=== PATIENT | male | born 1945 | race Caucasian/White ===

== ENCOUNTER → 2017-03-16 | Outpatient (CLI) | payer MEDICARE, OTHER ==
--- NOTE | 2017-03-17 10:30 | MRI ---
EXAM DESCRIPTION: MRI brain/orbits without and with contrast CLINICAL HISTORY: Blurred vision right eye. Ischemic neuritis. Previous cataract surgery 2016 COMPARISON: None Available. TECHNIQUE: Multi planar, multi sequence MRI evaluation of the brain and orbits, pre and post intravenous gadolinium FINDINGS: No signal abnormality or pathologic enhancement in the optic nerves, optic chiasm or optic tracts Orbits are grossly normal No intracranial hemorrhage, infarction, or mass lesion. Normal hernandez-white matter differentiation. No restricted diffusion. No pathologic enhancement throughout the brain Multifocal punctate and patchy white matter hyperintensity bilateral cerebral hemispheres mostly deep and periventricular white matter atrium and occipital horns bilateral lateral ventricles. This is nonspecific likely remote microvascular ischemia. Incidental pineal cyst 7 mm Ventricles are normal in size and configuration Normal flow voids are present in the major intracranial arteries and dural venous sinuses No abnormality is seen along the course of the cranial nerves. Normal appearance of the temporal bones Orbits are grossly normal Paranasal sinus disease with multifocal mucosal thickening throughout the ethmoid air cells. Mucosal retention cyst left maxillary sinus about 2.3 cm with inspissated secretions. No paranasal sinus fluid IMPRESSION: Normal MRI orbits. Specifically, no diagnostic evidence of optic neuritis Mild white matter disease likely remote microvascular ischemia. No acute abnormality Electronically signed by: Royal Curiel MD 03/17/2017 10:30 AM CDT
== END | disposition home or self-care (01) ==
LOC: MRI 09:55
PROVIDERS: ATTEND Ophthalmology
DX: H47.019 Ischemic optic neuropathy, unspecified eye (principal)

== ENCOUNTER → 2017-07-20 | Outpatient (CLI) | payer MEDICARE, OTHER | END | disposition home or self-care (01) | LOC: RESP 13:43 | PROVIDERS: ATTEND Family Medicine | DX: R06.02 Shortness of breath (principal) ==

== ENCOUNTER → 2017-09-07 | Outpatient (CLI) | payer MEDICARE, OTHER | LOC: SL 20:30 | PROVIDERS: ATTEND Internal Medicine | DX: G47.33 Obstructive sleep apnea (adult) (pediatric) (principal) ==

== ENCOUNTER → 2017-11-27 | Outpatient (CLI) | payer MEDICARE, OTHER | LOC: SL 18:59 | PROVIDERS: ATTEND Internal Medicine | DX: G47.33 Obstructive sleep apnea (adult) (pediatric) (principal) ==

== ENCOUNTER → 2018-03-26 | Outpatient (CLI) | payer MEDICARE, OTHER | LOC: GMAJS 17:43 | PROVIDERS: ATTEND Physician Assistant | DX: Z79.899 Other long term (current) drug therapy (principal); Z12.5 Encounter for screening for malignant neoplasm of prostate | CPT/HCPCS: 84439; 84443; G0103 ==

== ENCOUNTER → 2018-07-24 | Outpatient (CLI) | payer MEDICARE, OTHER | LOC: GMAE 14:49 | PROVIDERS: ATTEND Family Medicine | DX: E55.9 Vitamin D deficiency, unspecified (principal) ==

== ENCOUNTER → 2018-07-27 | Outpatient (CLI) | payer MEDICARE, OTHER ==
--- NOTE | 2018-07-27 10:57 | US ---
EXAM DESCRIPTION: Aorta CLINICAL HISTORY: 72 years Male, ENCOUNTER FOR SCREENING FOR OTHER DISORDER COMPARISON: None. FINDINGS: Proximal aorta measures 2.5 x 1.8 cm. The midabdominal aorta measures 2 x 2.4 cm. The distal abdominal aorta measures 2 x 2.5 cm. No significant enlargement to suggest the presence of an aneurysm. Common iliac arteries are normal in caliber 1.3 cm on the right and 1.1 cm on the left. No common iliac arterial aneurysm. Color Doppler imaging shows positive color flow within the aorta. IMPRESSION: Negative for evidence of abdominal aortic aneurysm. Electronically signed by: Ezra Grimaldo MD 07/27/2018 10:56 AM CDT
== END ==
LOC: US 09:00
PROVIDERS: ATTEND Family Medicine
DX: Z13.89 Encounter for screening for other disorder (principal)

== ENCOUNTER → 2018-08-27 | Outpatient (CLI) | payer MEDICARE, OTHER ==
--- NOTE | 2018-08-27 16:05 | MRI ---
EXAM DESCRIPTION: Upper Extremity,Right w/o Cont: MRI. CLINICAL HISTORY: BRACHIAL PLEXUS RT SIDE COMPARISON: MRI scan of the cervical spine on the same visit. TECHNIQUE: Multiplanar, high-field MRI, multiple sequences, without contrast: Right brachial plexus. FINDINGS: The brachial plexus can be seen in its entire course from the cervical spine, inferior to the clavicle and abutting the right subclavian artery and vein to the axilla. No solid soft tissue mass or fluid impressing on the plexus or originating from the plexus. Large cystic structure representing subcoracoid bursitis posterior and superior to the plexus and abutting the superior right subscapular muscle. Fatty muscle atrophy grade 2 noted in the muscles of the rotator cuff. On the coronal STIR images, however larger fluid collection is noted in the left subcoracoid bursa. Also bilateral glenohumeral joint effusions.. IMPRESSION: 1. No abnormal signal or mass or fluid in the brachial plexus. No mass effect on the plexus. 2. Bilateral subcoracoid bursitis. Larger in the left shoulder. Bilateral glenohumeral joint effusions. If rotator cuff pathology is suspected, consider MRI of the shoulder. Grade 2 atrophy in the right rotator cuff muscles. Electronically signed by: Alejandro Meyer MD 08/27/2018 4:03 PM [employer]
--- NOTE | 2018-08-27 16:20 | MRI ---
EXAM DESCRIPTION: Cervical Spine: MRI. CLINICAL HISTORY: CERVICAL RADICULOPATHY COMPARISON: MRI scan of the right brachioplexus without contrast. TECHNIQUE: Multiplanar MRI, multiple sequences, non-contrast High-field. FINDINGS: C3-4: Disc desiccation with anterior disc space loss. Bilateral uncinate spurs larger on the left. Minimal posterior midline disc bulge. Moderate canal narrowing and bilateral neural foraminal stenosis more on the left. C4-5: Disc desiccation with disc space preserved. Posterior midline 3 mm disc bulge abutting the cord. Bilateral flavum ligament hypertrophy. Bilateral facet arthrosis, with spur on the left. Moderate right neural foraminal narrowing and left neural foraminal stenosis. C5-6: Disc desiccation anterior bulging with spurs. Posterior broad-based protrusion of the disc impressing on the cord with borderline central mild canal stenosis. Bilateral uncinate spurs. Minimal facet arthrosis and bilateral neural foraminal stenosis. C6-7: Disc desiccation and minimal disc space loss. Disc bulge is more to the right of midline abutting the right ventral cord and the right C7 nerve. Large uncinate spur encroaching on the left foramen. Bilateral facets are unremarkable. Right paracentral borderline mild canal stenosis. Bilateral neural foraminal stenosis. C7-T1: Disc desiccation and left side Modic type II endplate reactive changes. Anterior and posterior disc bulge. Bilateral uncinate spurs larger on the right. Moderate left neural foraminal narrowing and right neural foraminal stenosis. Right facet arthrosis. Posterior disc bulge abutting the cord with moderate canal narrowing. T1-2: Disc desiccation minimal posterior bulge. Bilateral uncinate spurs. Bilateral mild foraminal narrowing more on the right. Facets and flavum ligaments are negative. Normal signal in the C2-3 disc with no bulging. Disc space preserved. Canal and neural foramina are patent. Facets negative. Spinal alignment kyphotic. No cord compression or cord edema. Atlantoaxial joint unremarkable.. Base of the cerebellar tonsils is above the foramen magnum. Paravertebral soft tissues negative. Vertebral bodies are not compressed at any level. Normal marrow signal in the remaining vertebral bodies and the posterior elements. IMPRESSION: 1. 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 2. Bilateral neural foraminal stenosis at C3-4, C5-6 and C6-7. Left neural foraminal stenosis at C4-5 and right neural foraminal stenosis at C7-T1. 3. Right paracentral borderline mild canal stenosis at C6-7. Borderline central mild canal stenosis at C5-6. Electronically signed by: Alejandro Meyer MD 08/27/2018 4:18 PM [facility]
== END ==
LOC: MRI 10:00
PROVIDERS: ATTEND Family Medicine
DX: M50.11 Cervical disc disorder with radiculopathy, high cervical region (principal); M50.121 Cervical disc disorder at C4-C5 level with radiculopathy; M50.122 Cervical disc disorder at C5-C6 level with radiculopathy; M50.123 Cervical disc disorder at C6-C7 level with radiculopathy; M50.13 Cervical disc disorder with radiculopathy, cervicothoracic region; M75.51 Bursitis of right shoulder; M75.52 Bursitis of left shoulder; M25.411 Effusion, right shoulder; M25.412 Effusion, left shoulder

== ENCOUNTER → 2019-12-31 | Outpatient (CLI) | payer MEDICARE, OTHER | DX: Z01.812 Encounter for preprocedural laboratory examination (principal); Z79.01 Long term (current) use of anticoagulants ==

== ENCOUNTER → 2020-05-11 | Outpatient (CLI) | payer MEDICARE, OTHER | LOC: GMAE 14:28 | PROVIDERS: ATTEND Family Medicine | DX: Z12.5 Encounter for screening for malignant neoplasm of prostate (principal); I10 Essential (primary) hypertension; E78.2 Mixed hyperlipidemia; Z79.891 Long term (current) use of opiate analgesic | CPT/HCPCS: 84443; G0103 ==

== ENCOUNTER → 2020-10-21 | Outpatient (CLI) | payer MEDICARE, OTHER ==
--- NOTE | 2020-10-22 08:40 | US ---
EXAM DESCRIPTION: Soft Tissue,Extremity: ULTRASOUND. 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 TECHNIQUE: Transcutaneous scanning: Logan-scale and Doppler modes. FINDINGS: Inhomogeneous hypoechoic mass with circumscribed margins in the subcutaneous tissues abutting the right posterior hip. Dimensions are 4.0 x 2.1 x 2.5 cm. Wider than tall orientation with posterior acoustic enhancement. Nonvascular. No fluid collection. No distinct cysts or large calcifications. Similar-appearing mass much smaller in the adjacent soft tissues measuring 1.3 x 1.2 x 0.7 cm. Wider than tall orientation, circumscribed margins and posterior acoustic enhancement. No distinct cyst, no fluid collection, and no large calcifications. IMPRESSION: 2 dominant soft tissue masses in the subcutaneous adipose tissue abutting the right posterior hip. 4 cm and 1.3 cm maximum diameter. Circumscribed, wider than tall orientation, posterior acoustic enhancement, and nonvascular. Due to degree of hypoechogenicity and heterogeneity of the echoes, these may represent more complicated lipomas. Consider close clinical follow-up, MRI scan with gadolinium, and/or tissue sampling. Electronically signed by: Alejandro Meyer MD 10/22/2020 8:38 AM [facility]
== END ==
LOC: US 13:30
PROVIDERS: ATTEND Family Medicine
DX: D17.1 Benign lipomatous neoplasm of skin and subcutaneous tissue of trunk (principal)

== ENCOUNTER → 2020-10-30 | Outpatient (CLI) | payer MEDICARE, OTHER ==
--- NOTE | 2020-10-30 15:35 | US ---
Thyroid Biopsy, Image-Guided: Biopsy/Needle Guidance: Ultrasound CLINICAL INFORMATION: 75 years Male. Right posterior hip subcutaneous soft tissue mass minimal growth. COMPARISON: Ultrasound soft tissues right hip October 21.. TECHNIQUE: Procedure was performed by Dr. Meyer; explained to the patient with risks and benefits. Timeout was performed to confirm patient ID, procedure to be performed, and body part to be involved. The patient gave verbal and written consent. Sterile preparation draping. 1% xylocaine dermal anesthetic 9-1 mixture with sodium bicarbonate. Sterile ultrasound guidance. A total of 3 passes utilizing the [employer] Box 18-gauge core needle 2-stage biopsy system with 1.5 cm sampling notch into the larger of 2 hypoechoic heterogeneous subcutaneous masses posterior to the right hip. Each sample was placed in a single container containing formaldehyde. Specimens to be sent for pathologic examination at remote facility. . Patient tolerated procedure well. FINDINGS: Multiple images demonstrate the echogenic needle within the nodule/mass during sampling. IMPRESSION: Successful ultrasound guided needle core biopsy of right subcutaneous hip mass, performed by Dr. Meyer. Electronically signed by: Alejandro Meyer MD 10/30/2020 3:33 PM [facility]
== END ==
LOC: US 09:49
PROVIDERS: ATTEND Family Medicine
DX: D17.1 Benign lipomatous neoplasm of skin and subcutaneous tissue of trunk (principal)

== ENCOUNTER → 2020-11-18 | Outpatient (CLI) | payer MEDICARE, OTHER ==
--- NOTE | 2020-11-18 20:22 | US ---
Thyroid Biopsy, Image-Guided: Biopsy/Needle Guidance: Ultrasound CLINICAL INFORMATION: 75 years Male. Mass on lateral right thigh. Patient states it has been there for a long time but has been growing. No pain or tenderness. COMPARISON: Previous percutaneous ultrasound-guided biopsy on October 30 yielded insufficient tissue for diagnosis.. TECHNIQUE: The procedure was performed by Dr. Meyer. Explained to the patient with risks and benefits. Timeout was performed prior to the procedure to confirm patient ID, procedure to be performed, and body part where procedure to be performed. The patient gave verbal and written consent. Patient placed in the decubitus position. Ultrasound localized the lesion at the proximal lateral right thigh. Sterile preparation. Sterile ultrasound guidance. 1% Xylocaine for skin and subdermal anesthesia. Insertion of [employer]Rad 14-gauge dual- stage biopsy gun, with 9 cm core needle, to the edge of the lesion, with 2 CM notch exposed.. Second-stage deployed.. 5 specimens were obtained. The specimens were collected in formalin container. The patient tolerated the procedure well with minimal hemorrhage which stopped after 5 minutes of direct pressure. A pressure bandage was applied . FINDINGS: Images taken prior to the procedure again demonstrate heterogeneous hypoechoic mass with circumscribed margin and internal scattered more hypoechoic regions, possibly blood. Multiple images demonstrate the biopsy device within the mass. IMPRESSION: Successful, ultrasound-guided core biopsy of proximal right thigh mass. Multiple adequate core samples were obtained. Pathology examination at remote facility, results pending. Electronically signed by: Alejandro Meyer MD 11/18/2020 8:20 PM [facility]
== END ==
LOC: US 08:57
PROVIDERS: ATTEND Family Medicine
DX: D17.1 Benign lipomatous neoplasm of skin and subcutaneous tissue of trunk (principal)